=== PATIENT | female | born 1985 | race Two or more races ===

== ENCOUNTER 2018-03-06 17:58 | Emergency (ER) | payer OTHER ==
[~2018-03-06] VITALS: Ht 154.9 cm; Wt 61.7 kg
[2018-03-06] MEDS ORDERED: OBSTETRIX DHA1 EACH (18:11)
== END 2018-03-06 20:33 | disposition home or self-care (01) ==
LOC: ER 17:58
DX: O20.8 Other hemorrhage in early pregnancy (principal); Z34.01 Encounter for supervision of normal first pregnancy, first trimester

== ENCOUNTER 2018-12-26 15:20 | Inpatient (IN) | payer OTHER ==
[~2018-12-26] VITALS: Ht 154.9 cm; Wt 73.5 kg
[~2018-12-26 15:20] MED LIST: OBSTETRIX DHA1 EACH
[2019-01-05] MEDS ORDERED: LEVOTHYROXINE25 MCG PO (22:08)
== END 2019-01-08 11:25 | disposition home or self-care (01) | DRG 807 ==
LOC: OB/GYN 01-02 14:15 → LDR 01-05 21:23 → OB/GYN 01-05 21:56
PROVIDERS: ADMIT Obstetrics & Gynecology
PROC: 3E033VJ Introduction of Other Hormone into Peripheral Vein, Percutaneous Approach (ICD-10-PCS; 2019-01-05)
PROC: 4A1HXCZ Monitoring of Products of Conception, Cardiac Rate, External Approach (ICD-10-PCS; 2019-01-05)
PROC: 10E0XZZ Delivery of Products of Conception, External Approach (ICD-10-PCS; principal; 2019-01-06)
PROC: 0KQM0ZZ Repair Perineum Muscle, Open Approach (ICD-10-PCS; 2019-01-06)
PROC: 10907ZC Drainage of Amniotic Fluid, Therapeutic from Products of Conception, Via Natural or Artificial Opening (ICD-10-PCS; 2019-01-06)
DX: O70.1 Second degree perineal laceration during delivery (principal); Z37.0 Single live birth; Z3A.38 38 weeks gestation of pregnancy

== ENCOUNTER 2019-01-05 07:25 | Outpatient (CLI) | payer OTHER ==
[2019-01-05] MEDS ORDERED: LEVOTHYROXINE25 MCG PO (22:08)
== END 2019-01-05 13:33 | disposition home or self-care (01) ==
LOC: OBS/DEL 07:25
DX: O47.1 False labor at or after 37 completed weeks of gestation (principal); Z34.83 Encounter for supervision of other normal pregnancy, third trimester

== ENCOUNTER 2021-08-22 08:38 | Emergency (ER) | payer OTHER ==
[~2021-08-22] VITALS: Ht 154.9 cm; Wt 59.9 kg
[~2021-08-22 08:38] MED LIST changes: +LEVOTHYROXINE25 MCG PO
== END 2021-08-22 11:12 | disposition home or self-care (01) ==
LOC: ER 08:38
DX: N75.1 Abscess of Bartholin's gland (principal); Z88.0 Allergy status to penicillin